=== PATIENT | female | born 1960 | race Hispanic/Latino ===

== ENCOUNTER 2017-02-20 07:17 | Emergency (ER) | payer OTHER, MEDICAID ==
[2017-02-20 07:18] VITALS: BMI 30.4
[2017-02-20 07:34] VITALS: TEMP 98.7
[2017-02-20] MEDS ORDERED: TDAP Vaccine 0.5 mL Syr IM ONE (07:49)
--- NOTE | 2017-02-20 07:53 | ED PDOC ---
Arrival/HPI - General Chief Complaint: Eye Problem Time Seen by Provider: 02/20/17 07:29 Historian: Patient - History of Present Illness Narrative History of Present Illness (Text): 02/20/17 07:50 Patient is a 56 year old female who presents to the emergency department with right eye pain after her dog scratched her eye prior to arrival. Patient reports tearing and redness with some blurry vision. Patient reports she usually wears a contact lens in her left eye, none in her right eye today. She states she took Aleve with no relief. Patient reports unknown last tetanus shot. Denies pain on other areas of the face. No other complaints. Time/Duration: Prior to Arrival Symptom Onset: Sudden Symptom Course: Unchanged Context: Home Past Medical History - Provider Review Nursing Documentation Reviewed: Yes - Infectious Disease Hx of Infectious Diseases: None - Tetanus Immunization Tetanus Immunization: Unknown - Reproductive Menopause: No - Cardiac Hx Hypertension: Yes - Pulmonary Hx Asthma: Yes - HEENT Hx HEENT Disorder: (pt uses one contact lens in left eye to read) - Musculoskeletal/Rheumatological Hx Arthritis: Yes (fingers) Hx Falls: No - Psychiatric Hx Anxiety: Yes Hx Depression: Yes Hx Substance Use: No - Past Surgical History Past Surgical History: No Previous - Anesthesia Hx Anesthesia: No Hx Anesthesia Reactions: No Hx Malignant Hyperthermia: No - Suicidal Assessment Feels Threatened In Home Enviroment: No Family/Social History - Physician Review Nursing Documentation Reviewed: Yes Family/Social History: Unknown Family HX Smoking Status: Current Some Days Smoker Hx Alcohol Use: Yes Hx Substance Use: No Hx Substance Use Treatment: No Allergies/Home Meds Allergies/Adverse Reactions: Allergies No Known Allergies Allergy (Verified 02/20/17 07:35) Home Medications: Home Meds Medication Instructions Recorded Confirmed Enalapril Maleate [Vasotec] 2.5 mg PO DAILY 02/20/17 02/20/17 Lovastatin [Altoprev] 20 mg PO DAILY 02/20/17 02/20/17 Review of Systems - Review of Systems Constitutional: absent: Fevers Eyes: Vision Changes, Photophobia, Eye Pain (Right) ENT: Rhinorrhea. absent: Sore Throat, Sinus Congestion Respiratory: absent: SOB Cardiovascular: absent: Chest Pain Neurological: absent: Headache, Dizziness, Gait Changes Physical Exam Vital Signs Reviewed: Yes Vital Signs Temp Pulse Resp BP Pulse Ox 02/20/17 07:29 98.7 F 75 18 130/84 97 Temperature: Afebrile Blood Pressure: Normal Pulse: Regular Respiratory Rate: Normal Appearance: Positive for: Well-Appearing, Non-Toxic, Uncomfortable Pain Distress: Mild Mental Status: Positive for: Alert and Oriented X 3 - Systems Exam Head: Present: Other (mild swelling ot right upper eyelid without external abrasion or laceration, no orbital stepoffs or tenderness) Pupils: Present: PERRL Extroacular Muscles: Present: EOMI Conjunctiva: Present: Injected, Other (there is 2 mm diameter central corneal abrasion noted, with fluoroscein uptake, no foreign body noted) Mouth: Present: Moist Mucous Membranes Nose (Internal): Present: No Active Bleeding Neck: Present: Normal Range of Motion Respiratory/Chest: No: Respiratory Distress Neurological: Present: CN II-XII Intact, Motor Func Grossly Intact, Normal Sensory Function Psychiatric: Present: Alert Medical Decision Making ED Course and Treatment: Differential Diagnosis include but are not limited to: Corneal abrasion Plan: Will update Tetanus shot, give Antibiotic eye drops, and instruct follow up with Opthamology. Progress Notes: Patient's history reviewed. No orbital edema noted. NO bony trauma noted. EOMI. PERRLA. Relief of pain after tetracaine drops instilled to right eye. There is flouroscein uptake suggestive of central corneal abrasion. Eye irrigated. No foreign bodies visualized with lid eversio. Re-exam, visual acuity and visual roberson intact at baseline. Stressed need for follow-up with optho given location and size of abrasion which I reviewed with patient. Risks of noncompliance reviewed. Cranial nerves intact. 02/20/17 08:10 - Medication Orders Current Medication Orders: Discontinued Medications Tetanus/Reduced Diphtheria/Acell Pertussis (Boostrix Vaccine Inj) 0.5 ml IM .ONCE ONE Stop: 02/20/17 07:50 - Scribe Statement The provider has reviewed the documentation as recorded by the Lillie Vazquez Provider Scribe Attestation: All medical record entries made by the Scribe were at my direction and personally dictated by me. I have reviewed the chart and agree that the record accurately reflects my personal performance of the history, physical exam, medical decision making, and the department course for this patient. I have also personally directed, reviewed, and agree with the discharge instructions and disposition. Disposition/Present on Arrival - Present on Arrival Any Indicators Present on Arrival: No History of DVT/PE: No History of Uncontrolled Diabetes: No Urinary Catheter: No History of Decub. Ulcer: No History Surgical Site Infection Following: None - Disposition Have Diagnosis and Disposition been Completed?: Yes Diagnosis: Corneal abrasion, right Disposition: HOME/ ROUTINE Disposition Time: 07:50 Condition: GOOD Discharge Instructions (ExitCare): Corneal Abrasion (ED) Additional Instructions: Use eye drops as directed. Do not wear contact lenses in affected eye until cleared by an eye doctor. No driving until visual symptoms have resolved. For any facial swelling, any bleeding or pus, any loss of vision or worsening of vision, any persistent or worsening of symptoms, get rechecked immediately. Follow-up with eye doctor today or tomorrow. Prescriptions: Ciprofloxacin 0.3% [Ciloxan 0.3% Ophth SOLN] 2 drop OD Q4 #1 bottle Referrals: Zion Kwok MD [Staff Provider] - Follow up with primary Forms: WORK NOTE, [facility] (Lebanese)
[2017-02-20] MEDS ORDERED: Ciprofloxacin 0.3% OPTH SOLN OD STA (08:18)
[2017-02-20 08:50] VITALS: BP 146/82; PULSE 77; RESP 16; O2SAT 98
== END 2017-02-20 08:50 | disposition home or self-care (01) ==
LOC: ED 07:17
DX: S05.01XA Injury of conjunctiva and corneal abrasion without foreign body, right eye, initial encounter (principal); W54.1XXA Struck by dog, initial encounter; Y93.89 Activity, other specified; Y92.89 Other specified places as the place of occurrence of the external cause; Z23 Encounter for immunization

== ENCOUNTER 2017-09-09 10:13 | Observation (INO) | payer OTHER, MEDICAID ==
[2017-09-09 10:27] VITALS: BMI 32.3
[2017-09-09] MEDS ORDERED: Sodium Chloride 0.9% 1,000 ML IV STA (10:36)
--- NOTE | 2017-09-09 12:10 | CT ---
PROCEDURE: CT HEAD WITHOUT CONTRAST. HISTORY: left sided headache, hx of meningioma COMPARISON: None available. TECHNIQUE: Axial computed tomography images were obtained through the head/brain without intravenous contrast. Radiation dose: Total exam DLP = 678.13 mGy-cm. This CT exam was performed using one or more of the following dose reduction techniques: Automated exposure control, adjustment of the mA and/or kV according to patient size, and/or use of iterative reconstruction technique. FINDINGS: HEMORRHAGE: No intracranial hemorrhage. BRAIN: No mass effect or edema. Dilated sulci suggestive of volume loss. VENTRICLES: Unremarkable. No hydrocephalusThe lateral ventricles are moderately dilated left more than right in the 3rd and 4th ventricles are mildly dilated. Findings suspicious for hydrocephalus. The differential considerations include central atrophy. . CALVARIUM: Unremarkable. PARANASAL SINUSES: Unremarkable as visualized. No significant inflammatory changes. MASTOID AIR CELLS: Unremarkable as visualized. No inflammatory changes. OTHER FINDINGS: None. IMPRESSION: No evidence of acute intracranial hemorrhage mass effect or midline shift. Moderately dilated lateral ventricles left more than right and mildly dilated 3rd and 4th ventricles. Findings suggestive of hydrocephalus versus less likely central atrophy. If clinically indicated further assessment by MRI is suggested.
[2017-09-09 12:16] LABS: BASO # 0.02 K/mm3 (0.0-2.0); BASO % 0.3 % (0.0-3.0); EOS # 0.1 (0.0-0.7); EOS % 2.2 % (1.5-5.0); GRAN # 3.26 (1.4-6.5); GRAN % 55.3 % (50.0-68.0); HEMOGLOBIN 13.2 g/dL (12.0-16.0); LYMPH # 2.1 (1.2-3.4); LYMPH % 35.4 % (22.0-35.0); MEAN CELL VOLUME 98.8 fl (80.0-105.0); MEAN CORPUSCULAR HEMOGLOBIN 32.4 pg (25.0-35.0); MEAN CORPUSCULAR HGB CONC 32.8 g/dl (31.0-37.0); MEAN PLATELET VOLUME 11.5 fl (7.0-11.0); MONO # 0.4 (0.1-0.6); MONO % 6.8 % (1.0-6.0); RBC 4.08 10^6/uL (3.5-6.1); RED CELL DISTRIBUTION WIDTH 12.4 % (11.5-14.5); WHITE BLOOD COUNT 5.9 10^3/ul (4.5-11.0)
--- NOTE | 2017-09-09 12:19 | CARD ---
APPROVED REPORT EKG Measurement Heart [id number] VT 184P44 [id number] <Conclusion> Normal sinus rhythm Voltage criteria for left ventricular hypertrophy Leftward axis PRWP V 3 - 6. Could be lead positioning. New.
[2017-09-09 12:20] LABS: VENOUS BLOOD GAS BASE EXCESS 3.8 mmol/L (0.0-2.0); VENOUS BLOOD GAS PO2 52 mm/Hg (30-55); VENOUS BLOOD PH 7.35 (7.32-7.43)
[2017-09-09 12:25] LABS: INR 0.96 (0.93-1.08); PARTIAL THROMBOPLASTIN TIME 27.2 Seconds (25.1-36.5); PROTHROMBIN TIME 10.5 SECONDS (9.4-12.5)
[2017-09-09 12:26] LABS: ALB/GLOB RATIO 1.5 (1.1-1.8); ALBUMIN 4.3 g/dL (3.0-4.8); ALT/SGPT 32 U/L (7-56); AST/SGOT 29 U/L (14-36); BLOOD UREA NITROGEN 14 mg/dL (7-21); CALCIUM 9.4 mg/dL (8.4-10.5); GFR AFRICAN-AMERICAN > 60; GFR NON-AFRICAN AMERICAN > 60; MAGNESIUM 1.9 mg/dL (1.7-2.2)
[2017-09-09 12:37] LABS: B-TYPE NATRIURETIC PEPTIDE 77.4 pg/mL (0-450); TROPONIN I < 0.01 ng/mL
--- NOTE | 2017-09-09 12:44 | RAD ---
HISTORY: near syncope COMPARISON: 10/26/2012 FINDINGS: LUNGS: No active pulmonary disease. PLEURA: No significant pleural effusion identified, no pneumothorax apparent. CARDIOVASCULAR: Normal. OSSEOUS STRUCTURES: No significant abnormalities. VISUALIZED UPPER ABDOMEN: Normal. OTHER FINDINGS: None. IMPRESSION: No active disease.
[2017-09-09 14:20] LABS: URINE BILIRUBIN NEGATIVE (NEGATIVE); URINE BLOOD NEGATIVE (NEGATIVE); URINE GLUCOSE (UA) NEGATIVE (NEGATIVE); URINE LEUKOCYTE ESTERASE TRACE Leu/uL (NEGATIVE); URINE NITRATE NEGATIVE (NEGATIVE); URINE PROTEIN TRACE mg/dL (<30 mg/dL); URINE UROBILINOGEN 0.2 E.U./dL (<1 E.U./dL)
[2017-09-09 14:24] LABS: URINE APPEARANCE SL CLOUDY (CLEAR); URINE COLOR YELLOW (YELLOW)
[2017-09-09 14:25] LABS: URINE BACTERIA MOD (NEG); URINE RBC 0 - 2 /hpf (0-2)
--- NOTE | 2017-09-09 15:11 | CP.PCM.HP ---
<Hiren Marquez - Last Filed: 09/09/17 15:02> History of Present Illness - History of Present Illness History of Present Illness: CC: Dizziness and headache Pt is a 56 yo female with past medical history of hypertension, COPD, hyperlipidemia, depression, GERD, peripheral edema and meningioma [place] [facility] [place] occipital headache and dizziness for past 6 days. Pt states that headache is throbbing and located mostly on the right side of her occipital region. Pt states that she feels as if she is about to pass out, but has not passed out, fallen, or endured any trauma. Pt states that her symptoms are associated with blurred vision, nausea, vomiting, palpitations, diaphoresis, and upper extremity weakness. Pt states that tsymptoms are generally constant but have varying levels of severity throughout the day. Pt states that lying supine makes her headache worse and will sometimes wake her up at night. Pt denies chest pain, shortness of breath, abdominal pain, constipation, diarrhea fever, chills, fatigue, or recent weight loss. Of note, patient had stress test done about [address] Walden that was normal. 2D echo was also performed that showed normal left atrial pressure and normal LVEF. PMH: as above Surg: Uterine polyp removal All: NKDA FHx: myocardial infarction, stroke SH: Former 1 ppd smoker (quit 3 years ago), social EtOH, denied illicit drug use PMD: Faith Present on Admission - Present on Admission Any Indicators Present on Admission: No Review of Systems - Review of Systems Review of Systems: 12 point ROS reviewed and is negative other than what is stated in HPI. Past Patient History - Infectious Disease Hx of Infectious Diseases: None - Tetanus Immunizations Tetanus Immunization: Unknown - Past Social History Smoking Status: Former Smoker - CARDIAC Hx Hypertension: Yes - PULMONARY Hx Asthma: Yes - HEENT Hx HEENT Problems: (pt uses one contact lens in left eye to read) Other/Comment: tumor back of R eye - MUSCULOSKELETAL/RHEUMATOLOGICAL Hx Arthritis: Yes (fingers) - PSYCHIATRIC Hx Anxiety: Yes Hx Depression: Yes Hx Substance Use: No - ANESTHESIA Hx Anesthesia: No Hx Anesthesia Reactions: No Hx Malignant Hyperthermia: No Meds Allergies/Adverse Reactions: Allergies Allergy/AdvReac Type Severity Reaction Status Date / Time No Known Allergies Allergy Verified 09/09/17 13:06 Physical Exam - Constitutional Appears: No Acute Distress - Head Exam Head Exam: NORMAL INSPECTION - Eye Exam Eye Exam: Normal appearance - ENT Exam ENT Exam: Normal Exam - Neck Exam Neck exam: Positive for: Normal Inspection - Respiratory Exam Respiratory Exam: Clear to Auscultation Bilateral. absent: Accessory Muscle Use , Rales, Rhonchi, Wheezes, Respiratory Distress - Cardiovascular Exam Cardiovascular Exam: RRR, +S1, +S2. absent: Diastolic murmur, Gallop, Rubs, Systolic Murmur - GI/Abdominal Exam GI & Abdominal Exam: Soft. absent: Distended, Guarding, Rebound, Tenderness - Extremities Exam Extremities exam: Positive for: pedal edema (1/) - Neurological Exam Neurological exam: Alert, Oriented x3 Additional comments: Negative pronator drift, rhomberg. No dysdiadodyskinesia, negative antonia- hallpike. Focal motor or sensory deficits - Psychiatric Exam Psychiatric exam: Normal Affect, Normal Mood - Skin Skin Exam: Dry, Intact, Normal Color, Warm Results - Vital Signs Recent Vital Signs: Last Vital Signs Temp 99.3 F 09/09/17 10:14 Pulse 67 09/09/17 12:43 Resp 18 09/09/17 12:43 BP 144/87 09/09/17 12:43 Pulse Ox 96 09/09/17 12:43 - Labs Result Diagrams: 09/09/17 11:30 09/09/17 11:30 Labs: Laboratory Results - last 24 hr 09/09/17 14:17 Urine Color Yellow Urine Appearance Sl cloudy Urine pH 6.0 Ur Specific [place] 1.025 Urine Protein Trace H Urine Glucose (UA) Negative Urine Ketones Negative Urine Blood Negative Urine Nitrate Negative Urine Bilirubin Negative Urine Urobilinogen 0.2 Ur Leukocyte Esterase Trace H Urine RBC 0 - 2 Urine WBC 1 - 3 Ur Epithelial Cells 6 - 8 Urine Bacteria Mod Assessment & Plan - Assessment and Plan (Free Text) Assessment: 56 yo female with past medical history of hypertension, COPD, hyperlipidemia, depression, GERD, peripheral edema, and meningioma admitted for evaluation and treatment for near syncope with headache. Plan: 1. Near syncope - CT showed moderately dilated lateral ventricles left > right, mildly dilated 3rd and 4th ventricle - MRI Brain w/wo contrast ordered - Neuro consulted - Carotid doppler ordered - Troponin negative x1, trend x2 - Orthostatic vitals normal - PT eval and treat - Recent echo showed normal LVEF - Aspiration and fall precautions 2. Hypertension - Cont Norvasc and Lisinopril 3. Hyperlipidemia - Cont Lipitor 4. Peripheral Edema - Cont Lasix 5. GERD - Cont Protonix 6. Depression - Cont Celexa GI/DVT PPx - Protonix - SCDs Pt seen and discussed in detail with attending. Se Marquez, PGY1 <JameselisMelanie sanchez - Last Filed: 09/09/17 16:46> Results - Vital Signs Recent Vital Signs: Last Vital Signs Temp 98.6 F 09/09/17 15:06 Pulse 68 09/09/17 15:06 Resp 19 09/09/17 15:06 BP 138/79 09/09/17 15:06 Pulse Ox 99 09/09/17 15:06 - Labs Result Diagrams: 09/09/17 11:30 09/09/17 11:30 Labs: Laboratory Results - last 24 hr 09/09/17 14:17 Urine Color Yellow Urine Appearance Sl cloudy Urine pH 6.0 Ur Specific [place] 1.025 Urine Protein Trace H Urine Glucose (UA) Negative Urine Ketones Negative Urine Blood Negative Urine Nitrate Negative Urine Bilirubin Negative Urine Urobilinogen 0.2 Ur Leukocyte Esterase Trace H Urine RBC 0 - 2 Urine WBC 1 - 3 Ur Epithelial Cells 6 - 8 Urine Bacteria Mod Attending/Attestation - Attestation I have personally seen and examined this patient.: Yes I have fully participated in the care of the patient.: Yes I have reviewed all pertinent clinical information: Yes Notes (Text): 09/09/17 16:38 attending note; Patient seen and examined with resident in ER. Patient is a 56 year old female with past medical history of hypertension, COPD , hyperlipidemia, depression, GERD, and meningioma is admitted with headache and dizziness for past [address] head shows dilated lateral ventricle with atrophy. MRI ordered. neurology evaluation requested. dizziness; check orthostatic blood pressure changes. PT evaluation requested. Adjust blood pressure medications. EKG showed nonspecific ST-T changes. Troponin is negative. 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 Patient has stress test done as outpatient in September 2016 which showed normal ejection fraction and normal left atrial pressure. will follow-up MRI. Upon discharge the patient will follow-up with PMD Dr. Cuevas. 09/09/17 16:46
[2017-09-09] MEDS ORDERED: Gadodiamide 287 MG/ML VIAL (15ML) IV ONE (15:37)
--- NOTE | 2017-09-09 16:31 | ED PDOC ---
Arrival/HPI - General Chief Complaint: Headache Time Seen by Provider: 09/09/17 10:25 Historian: Patient - History of Present Illness Narrative History of Present Illness (Text): 09/09/17 16:28 Patient is a 56 yo female, past medical history of hypertension, presents to the Emergency Department today with complaints of dizziness that started 6 days ago, gradually, now associated with gradual development of left sided posterior headache and nausea. States she feels unsteady on her feet and like "I might pass out" when she stands. Denies fever. Denies trauma. Denies loss of vision or blurred vision. Reports dizziness that is persistent despite position. Denies neck pain. Denies chest pain or shortness of breath. Denies abdominal pain. Denies falls. Time/Duration: Prior to Arrival, 1 week Symptom Onset: Gradual Symptom Course: Worsening Past Medical History - Infectious Disease Hx of Infectious Diseases: None - Tetanus Immunization Tetanus Immunization: Unknown - Reproductive Menopause: Yes - Cardiac Hx Hypertension: Yes - Pulmonary Hx Asthma: Yes - HEENT Hx HEENT Disorder: (pt uses one contact lens in left eye to read) Other/Comment: tumor back of R eye - Musculoskeletal/Rheumatological Hx Arthritis: Yes (fingers) - Psychiatric Hx Anxiety: Yes Hx Depression: Yes Hx Substance Use: No - Past Surgical History Past Surgical History: No Previous - Anesthesia Hx Anesthesia: No Hx Anesthesia Reactions: No Hx Malignant Hyperthermia: No - Suicidal Assessment Feels Threatened In Home Enviroment: No Family/Social History Family/Social History: Unknown Family HX Smoking Status: Former Smoker Hx Alcohol Use: Yes Frequency of alcohol use: Socially Hx Substance Use: No Hx Substance Use Treatment: No Allergies/Home Meds Allergies/Adverse Reactions: Allergies No Known Allergies Allergy (Verified 09/09/17 13:06) Home Medications: Home Meds Medication Instructions Recorded Confirmed Enalapril Maleate [Vasotec] 20 mg PO DAILY 02/20/17 09/09/17 Lovastatin [Altoprev] 10 mg PO DAILY 02/20/17 09/09/17 Citalopram [celEXA] 20 mg PO DAILY 09/09/17 09/09/17 Dexlansoprazole [Dexilant] 60 mg PO DAILY 09/09/17 09/09/17 Furosemide [Lasix] 20 mg PO DAILY 09/09/17 09/09/17 amLODIPine [Norvasc] 5 mg PO DAILY 09/09/17 09/09/17 Review of Systems - Review of Systems Constitutional: Fatigue. absent: Fevers Eyes: absent: Vision Changes, Photophobia, Eye Pain ENT: absent: Hearing Changes, Sore Throat, Rhinorrhea Respiratory: absent: SOB, Cough Cardiovascular: absent: Chest Pain, Palpitations Gastrointestinal: Nausea, Appetite Changes. absent: Abdominal Pain, Diarrhea, Vomiting Genitourinary Female: absent: Dysuria, Frequency Musculoskeletal: absent: Back Pain, Neck Pain Skin: absent: Rash Neurological: Headache, Dizziness, Gait Changes, Disequilibrium. absent: Focal Weakness, Speech Changes, Facial Droop, Seizure Endocrine: absent: Polyuria, Polydipsia Hemo/Lymphatic: absent: Easy Bleeding Psychiatric: absent: Depression, Suicidal Ideation Physical Exam Vital Signs Reviewed: Yes Vital Signs Temp Pulse Resp BP Pulse Ox 09/09/17 15:06 98.6 F 68 19 138/79 99 09/09/17 15:03 71 16 142/80 96 09/09/17 12:43 67 18 144/87 96 09/09/17 10:14 99.3 F 89 16 105/73 95 Temperature: Afebrile Appearance: Positive for: Uncomfortable Pain Distress: Mild Mental Status: Positive for: Alert and Oriented X 3 - Systems Exam Head: Present: Atraumatic, Normocephalic Pupils: Present: PERRL, Other (no nystagmus noted) Extroacular Muscles: Present: EOMI Conjunctiva: No: Injected Mouth: Present: Moist Mucous Membranes Pharnyx: No: ERYTHEMA Nose (Internal): Present: Normal Inspection Neck: Present: Normal Range of Motion. No: Meningeal Signs Respiratory/Chest: Present: Clear to Auscultation. No: Respiratory Distress Cardiovascular: Present: Regular Rate and Rhythm, Murmurs Abdomen: No: Tenderness, Distention Back: No: CVA Tenderness, Midline Tenderness Upper Extremity: Present: NORMAL PULSES, Neurovascularly Intact. No: Cyanosis, Edema Lower Extremity: Present: NORMAL PULSES, Neurovascularly Intact. No: CALF TENDERNESS Neurological: Present: CN II-XII Intact, Speech Normal, Memory Normal, Other ( normal finger to nose, normal rapid alternating movements). No: Gait Normal Skin: Present: Warm Psychiatric: Present: Alert, Normal Concentration Medical Decision Making ED Course and Treatment: 09/09/17 16:33 Patient presents to ED stating dizziness since last week, on exam she is alert, oriented, although has mild posterior left sided headache. No associated trauma or fever. Not "worst in life". Not thunderclap. On exam she has somewhat unsteady gait, no meningeal signs with supple neck. Denies chest pain or shortness of breath. Denies abdominal pain. Based on progressive gait disturbance, ct head ordered, reveals hydrocephalus, no prior for comparison. Patient states in the past she has been diagnosed with "meningioma". Patient on re-examination is noted to be alert, oriented, with mild persistent headache. I consulted with on-call neurologist Dr. Alba who has evaluated patient in ED. CT findings reviewed with patient and patient agreeable to admission for further evaluation and treatment. Patient will be admitted to hospitalist service. - Lab Interpretations Lab Results: 09/09/17 11:30 09/09/17 11:30 Lab Results 09/09/17 11:30: pO2 52, VBG pH 7.35, VBG pCO2 56.0, VBG HCO3 30.9 H, VBG Total CO2 32.6 H, VBG O2 Sat (Calc) 87.3 H, VBG Base Excess 3.8 H, VBG Potassium 3.7, Sodium 137.0, Chloride 101.0, Glucose 136 H, Lactate 2.2 H, FiO2 21.0, Venous Blood Potassium 3.7 09/09/17 11:30: Sodium 139, Chloride 100, Potassium 4.0, Carbon Dioxide 27, Anion Gap 16, BUN 14, Creatinine 0.7, Est GFR ( Amer) > 60, Est GFR (Non- Af Amer) > 60, Random Glucose 134 H, Calcium 9.4, Magnesium 1.9, Total Bilirubin 0.4, AST 29, ALT 32, Alkaline Phosphatase 61, Lactate Dehydrogenase 483, Total Creatine Kinase 47, Troponin I < 0.01, NT-Pro-B Natriuret Pep 77.4, Total Protein 7.2, Albumin 4.3, Globulin 2.9, Albumin/Globulin Ratio 1.5 09/09/17 11:30: PT 10.5, INR 0.96, APTT 27.2 09/09/17 11:30: WBC 5.9, RBC 4.08, Hgb 13.2, Hct 40.3, MCV 98.8, MCH 32.4, MCHC 32.8, RDW 12.4, Plt Count 249, MPV 11.5 H, Gran % 55.3, Lymph % (Auto) 35.4 H, [place] % (Auto) 6.8 H, Eos % (Auto) 2.2, Baso % (Auto) 0.3, Gran # 3.26, Lymph # 2.1, [place] # 0.4, Eos # 0.1, Baso # 0.02 09/09/17 11:03: POC Glucose (mg/dL) 134 H - RAD Interpretation Radiology Orders: 09/09/17 10:35 HEAD W/O CONTRAST [CT] Stat CHEST PORTABLE [RAD] Stat - EKG Interpretation EKG Interpretation (Text): 09/09/17 16:35 EKG at 11:06 normal sinus rhythm rate of [address] elevations Interpreted by ED Physician: Yes Type: 12 lead EKG - Medication Orders Current Medication Orders: Amlodipine Besylate (Norvasc) 5 mg PO DAILY JOHANNY Atorvastatin Calcium (Lipitor) 40 mg PO DIN JOHANNY Citalopram Hydrobromide (Celexa) 20 mg PO DAILY JOHANNY Furosemide (Lasix) 20 mg PO DAILY JOHANNY Lisinopril (Zestril) 20 mg PO DAILY JOHANNY Pantoprazole Sodium (Protonix Ec Tab) 40 mg PO 0600 JOHANNY Discontinued Medications Acetaminophen (Tylenol 325mg Tab) 650 mg PO ONCE STA Stop: 09/09/17 15:01 Last Admin: 09/09/17 15:15 Dose: 650 mg MAR Pain/Vitals Document 09/09/17 15:15 [place] (Rec: 09/09/17 15:17 [place] [facility] [id number] Pain Reassessment Is This A Pain ReAssessment? Yes Sleep Is patient sleeping during reassessment? 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 Intensity 2 Scale Used Numeric Sodium Chloride (Sodium Chloride 0.9%) 1,000 mls @ 1,000 mls/hr IV .Q1H STA Stop: 09/09/17 11:35 Last Admin: 09/09/17 11:06 Dose: 1,000 mls/hr eMAR Start Stop Document 09/09/17 11:06 LA (Rec: 09/09/17 11:06 [place] [facility] [id number] Intravenous Solution Start Date 09/09/17 Start Time 11:06 Non-Formulary Medication (Enalapril Maleate [Vasotec]) 20 mg PO DAILY [facility] Non-Formulary Medication (Lovastatin [Altoprev]) 10 mg PO DAILY JOHANNY Disposition/Present on Arrival - Present on Arrival Any Indicators Present on Arrival: No History of DVT/PE: No History of Uncontrolled Diabetes: No Urinary Catheter: No History of Decub. Ulcer: No History Surgical Site Infection Following: None - Disposition Have Diagnosis and Disposition been Completed?: Yes Diagnosis: Hydrocephalus, Dizziness, Headache, Gait disturbance Disposition: HOSPITALIZED Disposition Time: 12:15 Patient Plan: Admission, Telemetry Patient Problems: Current Active Problems Problem Status Onset Dizziness Acute Gait disturbance Acute Headache Acute Hydrocephalus Acute Condition: FAIR
--- NOTE | 2017-09-09 16:52 | MRI ---
PROCEDURE: MRI BRAIN WITH AND WITHOUT CONTRAST HISTORY: dilated ventricles on CT COMPARISON: None. TECHNIQUE: Multiplanar, multisequence MR images of the brain were obtained with and without intravenous contrast enhancement. FINDINGS: HEMORRHAGE: None DWI: No evidence of an acute or early subacute infarction. BRAIN PARENCHYMA: No mass,mass effect or edema. Mild volume loss is noted. ENHANCEMENT: There is no evidence of enhancing mass lesion in the brain. VENTRICLES: Moderately dilated lateral ventricles left more than right. The 3rd ventricles is mildly dilated. The 4th ventricle is normal in size. There is no evidence of significant transependymal edema. CRANIUM: Unremarkable. ORBITS: Grossly unremarkable. PARANASAL SINUSES/MASTOIDS: Clear VASCULAR SYSTEM: Skull base flow voids intact. OTHER FINDINGS: None . IMPRESSION: Moderately dilated lateral ventricles may represent non communicated hydrocephalus versus less likely moderate central atrophy. No evidence of enhancing mass lesion in the brain. No evidence of acute infarction or acute pathology in the brain.
--- NOTE | 2017-09-09 17:18 | US ---
PROCEDURE: Bilateral carotid artery duplex ultrasound HISTORY: Carotid stenosis dizziness PHYSICIAN(S): Octavio Gamez MD. TECHNIQUE: Duplex sonography and color-flow Doppler were used to evaluate the carotid bifurcations and limited segments of the vertebral arteries bilaterally. FINDINGS: There is mild smooth hypoechoic plaque noted at the carotid bifurcations bilaterally. The peak systolic velocity in the proximal right internal carotid artery is 88 cm/sec. This corresponds to a 20 to 39% proximal right ICA stenosis. Normal systolic velocities are noted in the proximal right external carotid artery. There is antegrade flow in the right vertebral artery. The peak systolic velocity in the proximal left internal carotid artery is 89 cm/sec. This corresponds to a 20 to 39% proximal left ICA stenosis. Normal systolic velocities are noted in the proximal left external carotid artery. There is antegrade flow in the dominant left vertebral artery. IMPRESSION: 1. Bilateral 20-39% proximal ICA stenoses. 2. Antegrade flow in both vertebral arteries.
[2017-09-09 17:37] LABS: VENOUS BLOOD GAS BASE EXCESS 2.7 mmol/L (0.0-2.0); VENOUS BLOOD GAS PO2 159 mm/Hg (30-55); VENOUS BLOOD PH 7.41 (7.32-7.43)
[2017-09-09 22:13] LABS: TROPONIN I < 0.01 ng/mL
--- NOTE | 2017-09-09 23:44 | CON ---
HISTORY OF PRESENT ILLNESS: This is a 56-year-old white female with a past medical history of hypertension, came to the emergency room with the complaint of dizziness, which started about 6 days ago and also associated with headache in the back of the head and nausea. She also feels unsteady and thinks she might pass out, but did not fall. No loss of consciousness. No visual problem. No blurred vision. Called to evaluate the patient. PAST MEDICAL HISTORY: Hypertension, anxiety, and depression. ALLERGIES: No known drug allergy. HOME MEDICATIONS: Enalapril, Celexa, and Lasix. PHYSICAL EXAMINATION: HEENT: Normocephalic, atraumatic. NECK: Supple. NEUROLOIC: Awake, alert, oriented x3. No aphasia. Cranial nerves II through XII are tested. Pupils are reactive to light. EOM intact. Visual field full. No facial asymmetry. Tongue midline. On motor examination, moves all the extremities equally. Tone normal. Deep tendon reflexes 1+. Both plantars are downgoing. Sensory appears intact. Cerebellar and gait, deferred. IMPRESSION: Dizziness, vertigo, possibly vertebrobasilar ischemia, and headache, possibly migrainous type and we did the MRI and the MRI showed noncommunicating mild hydrocephalus and workup is in progress. We will follow up. Bo Alba MD
[2017-09-10] MEDS ORDERED: Influenza Vaccine 60 mcg/0.5 mL SYR (4YR UP) IM ONE (00:53)
[2017-09-10] MEDS ORDERED: Pneumococcal 23-Valent Vaccine IM ONE (00:53)
[2017-09-10 04:14] LABS: ALB/GLOB RATIO 1.3 (1.1-1.8); ALBUMIN 3.8 g/dL (3.0-4.8); ALT/SGPT 35 U/L (7-56); AST/SGOT 28 U/L (14-36); BLOOD UREA NITROGEN 12 mg/dL (7-21); CALCIUM 8.9 mg/dL (8.4-10.5); GFR AFRICAN-AMERICAN > 60; GFR NON-AFRICAN AMERICAN > 60; MAGNESIUM 2.1 mg/dL (1.7-2.2)
[2017-09-10 04:24] LABS: TROPONIN I < 0.01 ng/mL
[2017-09-10 04:53] LABS: BASO # 0.01 K/mm3 (0.0-2.0); BASO % 0.2 % (0.0-3.0); EOS # 0.2 (0.0-0.7); EOS % 3.6 % (1.5-5.0); GRAN # 1.91 (1.4-6.5); GRAN % 38.5 % (50.0-68.0); HEMOGLOBIN 12.6 g/dL (12.0-16.0); LYMPH # 2.5 (1.2-3.4); LYMPH % 49.6 % (22.0-35.0); MEAN CELL VOLUME 99.7 fl (80.0-105.0); MEAN CORPUSCULAR HEMOGLOBIN 32.6 pg (25.0-35.0); MEAN CORPUSCULAR HGB CONC 32.7 g/dl (31.0-37.0); MEAN PLATELET VOLUME 10.4 fl (7.0-11.0); MONO # 0.4 (0.1-0.6); MONO % 8.1 % (1.0-6.0); RBC 3.86 10^6/uL (3.5-6.1); RED CELL DISTRIBUTION WIDTH 12.4 % (11.5-14.5)
[2017-09-10] MEDS: Pantoprazole 40 mg EC Tab PO SCH (05:51)
[2017-09-10] MEDS ORDERED: Non Formulary Medication (Enalapril Maleate [Vasotec] 20 MG) PO SCH (10:00)
[2017-09-10] MEDS ORDERED: LOVASTATIN 10 MG PO SCH (10:00)
[2017-09-10] MEDS ORDERED: Apap-Butalbital-Caffeine 325-50-40mg Tab PO PRN (11:51)
[2017-09-10] MEDS ORDERED: Sodium Chloride 0.9% 500 ML IV STA (12:06)
--- NOTE | 2017-09-10 16:49 | CP.PCM.PN ---
<Hiren Marquez - Last Filed: 09/10/17 16:43> Subjective - Date & Time of Evaluation Date of Evaluation: 09/10/17 Time of Evaluation: 16:43 - Subjective Subjective: Medicine Progress Note Pt seen and examined at bedside. Pt states that she feels dizzy when getting out of bed too quick. But not dizzy otherwise. Headaches have resolved as well. Pt denied CP, SOB, nausea, vomiting, diarrhea, abdominal pain, fever, chills, WOODARD , or fatigue. Objective - Vital Signs/Intake and Output Vital Signs (last 24 hours): Temp Pulse Resp BP Pulse Ox 98.8 F 60 18 126/70 95 09/10/17 06:00 09/10/17 10:21 09/10/17 06:00 09/10/17 10:22 09/10/17 06:00 Intake and Output: 09/10/17 09/10/17 06:59 18:59 Intake Total 480 Balance 480 - Medications Medications: Current Medications Acetaminophen/Butalbital/Caffeine (Fioricet) 1 tab PO Q8H PRN PRN Reason: Headache Amlodipine Besylate (Norvasc) 5 mg PO DAILY [facility] Last Admin: 09/10/17 10:21 Dose: 5 mg Atorvastatin Calcium (Lipitor) 40 mg PO DIN [facility] Last Admin: 09/09/17 17:42 Dose: 40 mg Citalopram Hydrobromide (Celexa) 20 mg PO DAILY [facility] Last Admin: 09/10/17 10:22 Dose: 20 mg Furosemide (Lasix) 20 mg PO DAILY [facility] Last Admin: 09/10/17 10:22 Dose: 20 mg Lisinopril (Zestril) 20 mg PO DAILY [facility] Last Admin: 09/10/17 10:21 Dose: 20 mg Pantoprazole Sodium (Protonix Ec Tab) 40 mg PO 0600 [facility] Last Admin: 09/10/17 05:51 Dose: 40 mg - Labs Labs: 09/10/17 04:35 09/10/17 03:55 PT 10.5 SECONDS (9.4-12.5) 09/09/17 11:30 INR 0.96 (0.93-1.08) 09/09/17 11:30 APTT 27.2 Seconds (25.1-36.5) 09/09/17 11:30 - Constitutional Appears: No Acute Distress - Head Exam Head Exam: NORMAL INSPECTION - Eye Exam Eye Exam: Normal appearance - ENT Exam ENT Exam: Normal Exam - Neck Exam Neck Exam: Full ROM, Normal Inspection - Respiratory Exam Respiratory Exam: Clear to Ausculation Bilateral. absent: Rales, Rhonchi, Wheezes, Respiratory Distress - Cardiovascular Exam Cardiovascular Exam: RRR, +S1, +S2. absent: Gallop, Rubs, Murmur - GI/Abdominal Exam GI & Abdominal Exam: Soft. absent: Distended, Guarding, Tenderness, Rebound - Extremities Exam Extremities Exam: Normal Inspection - Back Exam Back Exam: NORMAL INSPECTION - Neurological Exam Neurological Exam: Alert, Awake, Oriented x3 - Psychiatric Exam Psychiatric exam: Normal Affect, Normal Mood - Skin Skin Exam: Dry, Intact, Normal Color, Warm Assessment and Plan - Assessment and Plan (Free Text) Assessment: 56 yo female with past medical history of hypertension, COPD, hyperlipidemia, depression, GERD, peripheral edema, and meningioma admitted for evaluation and treatment for vertigo with headache. Plan: 1. Vertigo, Headache - Will hold AM Lasix, evaluate dizziness afterwards - CT showed moderately dilated lateral ventricles left > right, mildly dilated 3rd and 4th ventricle - MRI Brain w/wo contrast showed moderately dilated lateral ventricles, may represent non-communicating hydrocephalus - Neuro consulted - Neurosurgery consulted, advised outpatient follow up - Carotid doppler negative - Troponin negative x3 - Orthostatic vitals normal before and after 500 cc NS bolus - PT eval and treat - Recent echo showed normal LVEF - Aspiration and fall precautions 2. Hypertension - Cont Norvasc and Lisinopril 3. Hyperlipidemia - Cont Lipitor 4. Peripheral Edema - Cont Lasix 5. GERD - Cont Protonix 6. Depression - Cont Celexa GI/DVT PPx - Protonix - SCDs Pt seen and discussed in detail with Dr. Diaz. Se Marquez, PGY1 <Alok Diaz - Last Filed: 09/10/17 17:04> Objective - Vital Signs/Intake and Output Vital Signs (last 24 hours): Temp Pulse Resp BP Pulse Ox 98.8 F 84 18 126/70 95 09/10/17 06:00 09/10/17 14:00 09/10/17 06:00 09/10/17 10:22 09/10/17 06:00 Intake and Output: 09/10/17 09/10/17 06:59 18:59 Intake Total 480 Balance 480 - Medications Medications: Current Medications Acetaminophen/Butalbital/Caffeine (Fioricet) 1 tab PO Q8H PRN PRN Reason: Headache Amlodipine Besylate (Norvasc) 5 mg PO DAILY [facility] Last Admin: 09/10/17 10:21 Dose: 5 mg Atorvastatin Calcium (Lipitor) 40 mg PO DIN [facility] Last Admin: 09/09/17 17:42 Dose: 40 mg Citalopram Hydrobromide (Celexa) 20 mg PO DAILY [facility] Last Admin: 09/10/17 10:22 Dose: 20 mg Furosemide (Lasix) 20 mg PO DAILY [facility] Last Admin: 09/10/17 10:22 Dose: 20 mg Lisinopril (Zestril) 20 mg PO DAILY [facility] Last Admin: 09/10/17 10:21 Dose: 20 mg Pantoprazole Sodium (Protonix Ec Tab) 40 mg PO 0600 [facility] Last Admin: 09/10/17 05:51 Dose: 40 mg - Labs Labs: 09/10/17 04:35 09/10/17 03:55 PT 10.5 SECONDS (9.4-12.5) 09/09/17 11:30 INR 0.96 (0.93-1.08) 09/09/17 11:30 APTT 27.2 Seconds (25.1-36.5) 09/09/17 11:30 Attending/Attestation - Attestation I have personally seen and examined this patient.: Yes I have fully participated in the care of the patient.: Yes I have reviewed all pertinent clinical information, including history, physical exam and plan: Yes Notes (Text): 56 yo female with past medical history of hypertension, COPD, hyperlipidemia, depression, GERD, peripheral edema, and meningioma admitted for evaluation and treatment for vertigo with headache. Plan: 1. Vertigo, Headache only happens in morning rule out orthostatic hypotension 2. Hypertension - Cont Norvasc and Lisinopril hold lasix 3. Hyperlipidemia 4. Peripheral Edema 5. GERD 6. Depression
[2017-09-11] MEDS: Pantoprazole 40 mg EC Tab PO SCH (07:01)
[2017-09-11 07:29] LABS: BASO # 0.01 K/mm3 (0.0-2.0); BASO % 0.2 % (0.0-3.0); EOS # 0.1 (0.0-0.7); EOS % 2.4 % (1.5-5.0); GRAN # 2.61 (1.4-6.5); GRAN % 53.1 % (50.0-68.0); HEMOGLOBIN 12.9 g/dL (12.0-16.0); LYMPH # 1.7 (1.2-3.4); LYMPH % 35.2 % (22.0-35.0); MEAN CELL VOLUME 99.8 fl (80.0-105.0); MEAN CORPUSCULAR HEMOGLOBIN 32.2 pg (25.0-35.0); MEAN CORPUSCULAR HGB CONC 32.3 g/dl (31.0-37.0); MEAN PLATELET VOLUME 10.5 fl (7.0-11.0); MONO # 0.5 (0.1-0.6); MONO % 9.1 % (1.0-6.0); RBC 4.01 10^6/uL (3.5-6.1); RED CELL DISTRIBUTION WIDTH 12.3 % (11.5-14.5); WHITE BLOOD COUNT 4.9 10^3/ul (4.5-11.0)
[2017-09-11 07:43] LABS: ALB/GLOB RATIO 1.1 (1.1-1.8); ALBUMIN 3.8 g/dL (3.0-4.8); ALT/SGPT 33 U/L (7-56); AST/SGOT 30 U/L (14-36); BLOOD UREA NITROGEN 12 mg/dL (7-21); CALCIUM 9.6 mg/dL (8.4-10.5); GFR AFRICAN-AMERICAN > 60; GFR NON-AFRICAN AMERICAN > 60
[2017-09-11 08:45] VITALS: RESP 18; TEMP 98.7; O2SAT 97
[2017-09-11 09:46] VITALS: BP 102/72; PULSE 79
--- NOTE | 2017-09-11 11:28 | CP.PCM.DIS ---
Provider - Provider Date of Admission: 09/09/17 12:38 Attending physician: Melanie Frey MD Primary care physician: Jonnathan Cuevas MD Consults: Neuro: Anjali Neurosurg: Hilario Time Spent in preparation of Discharge (in minutes): 45 Hospital Course - Lab Results Lab Results: Micro Results 09/09/17 14:25 Urine,Clean Catch Urine Culture - Final Gram Positive Cocci Most Recent Lab Values WBC 4.9 10^3/ul (4.5-11.0) 09/11/17 06:30 RBC 4.01 10^6/uL (3.5-6.1) 09/11/17 06:30 Hgb 12.9 g/dL (12.0-16.0) 09/11/17 06:30 Hct 40.0 % (36.0-48.0) 09/11/17 06:30 MCV 99.8 fl (80.0-105.0) 09/11/17 06:30 MCH 32.2 pg (25.0-35.0) 09/11/17 06:30 MCHC 32.3 g/dl (31.0-37.0) 09/11/17 06:30 RDW 12.3 % (11.5-14.5) 09/11/17 06:30 Plt Count 205 10^3/uL (120.0-450.0) 09/11/17 06:30 MPV 10.5 fl (7.0-11.0) 09/11/17 06:30 Gran % 53.1 % (50.0-68.0) 09/11/17 06:30 Lymph % (Auto) 35.2 % (22.0-35.0) H 09/11/17 06:30 Nicholas % (Auto) 9.1 % (1.0-6.0) H 09/11/17 06:30 Eos % (Auto) 2.4 % (1.5-5.0) 09/11/17 06:30 Baso % (Auto) 0.2 % (0.0-3.0) 09/11/17 06:30 Gran # 2.61 (1.4-6.5) 09/11/17 06:30 Lymph # 1.7 (1.2-3.4) 09/11/17 06:30 Nicholas # 0.5 (0.1-0.6) 09/11/17 06:30 Eos # 0.1 (0.0-0.7) 09/11/17 06:30 Baso # 0.01 K/mm3 (0.0-2.0) 09/11/17 06:30 PT 10.5 SECONDS (9.4-12.5) 09/09/17 11:30 INR 0.96 (0.93-1.08) 09/09/17 11:30 APTT 27.2 Seconds (25.1-36.5) 09/09/17 11:30 pO2 159 mm/Hg (30-55) H 09/09/17 17:20 VBG pH 7.41 (7.32-7.43) 09/09/17 17:20 VBG pCO2 44.0 (40-60) 09/09/17 17:20 VBG HCO3 27.9 mmol/l (21-28) 09/09/17 17:20 VBG Total CO2 29.3 mmol.L (22-28) H 09/09/17 17:20 VBG O2 Sat (Calc) 99.4 % (40-65) H 09/09/17 17:20 VBG Base Excess 2.7 mmol/L (0.0-2.0) H 09/09/17 17:20 VBG Potassium 3.5 mmol/L (3.6-5.2) L 09/09/17 17:20 Sodium 137.0 mmol/L (132-148) 09/09/17 17:20 Chloride 104.0 mmol/L (98-107) 09/09/17 17:20 Glucose 100 mg/dl (65-105) 09/09/17 17:20 Lactate 1.2 mmol/L (0.7-2.1) 09/09/17 17:20 FiO2 21.0 % 09/09/17 17:20 Sodium 142 mmol/L (132-148) 09/11/17 06:30 Potassium 3.9 mmol/L (3.6-5.0) 09/11/17 06:30 Chloride 105 mmol/L (98-107) 09/11/17 06:30 Carbon Dioxide 29 mmol/L (21-33) 09/11/17 06:30 Anion Gap 11 (10-20) 09/11/17 06:30 BUN 12 mg/dL (7-21) 09/11/17 06:30 Creatinine 0.8 mg/dl (0.7-1.2) 09/11/17 06:30 Est GFR ( Amer) > 60 09/11/17 06:30 Est GFR (Non-Af Amer) > 60 09/11/17 06:30 POC Glucose (mg/dL) 134 mg/dL (65-110) H 09/09/17 11:03 Random Glucose 104 mg/dL (70-110) 09/11/17 06:30 Hemoglobin A1c 5.8 % (4.2-6.5) 09/10/17 04:35 Calcium 9.6 mg/dL (8.4-10.5) 09/11/17 06:30 Phosphorus 4.1 mg/dL (2.5-4.5) 09/10/17 03:55 Magnesium 2.1 mg/dL (1.7-2.2) 09/10/17 03:55 Total Bilirubin 0.7 mg/dL (0.2-1.3) 09/11/17 06:30 AST 30 U/L (14-36) 09/11/17 06:30 ALT 33 U/L (7-56) 09/11/17 06:30 Alkaline Phosphatase 50 U/L (38-126) 09/11/17 06:30 Lactate Dehydrogenase 349 U/L (333-699) 09/10/17 03:55 Total Creatine Kinase 39 U/L (35-230) 09/10/17 03:55 Troponin I < 0.01 ng/mL 09/10/17 03:55 NT-Pro-B Natriuret Pep 77.4 pg/mL (0-450) 09/09/17 11:30 Total Protein 7.1 g/dL (5.8-8.3) 09/11/17 06:30 Albumin 3.8 g/dL (3.0-4.8) 09/11/17 06:30 Globulin 3.3 gm/dL 09/11/17 06:30 Albumin/Globulin Ratio 1.1 (1.1-1.8) 09/11/17 06:30 TSH 3rd Generation 4.59 mIU/mL (0.46-4.68) 09/10/17 04:35 Venous Blood Potassium 3.5 mmol/L (3.6-5.2) L 09/09/17 17:20 Urine Color Yellow (YELLOW) 09/09/17 14:17 Urine Appearance Sl cloudy (CLEAR) 09/09/17 14:17 Urine pH 6.0 (4.7-8.0) 09/09/17 14:17 Ur Specific Sullivan 1.025 (1.005-1.035) 09/09/17 14:17 Urine Protein Trace mg/dL (<30 mg/dL) H 09/09/17 14:17 Urine Glucose (UA) Negative mg/dL (NEGATIVE) 09/09/17 14:17 Urine Ketones Negative mg/dL (NEGATIVE) 09/09/17 14:17 Urine Blood Negative (NEGATIVE) 09/09/17 14:17 Urine Nitrate Negative (NEGATIVE) 09/09/17 14:17 Urine Bilirubin Negative (NEGATIVE) 09/09/17 14:17 Urine Urobilinogen 0.2 E.U./dL (<1 E.U./dL) 09/09/17 14:17 Ur Leukocyte Esterase Trace Fahad/uL (NEGATIVE) H 09/09/17 14:17 Urine RBC 0 - 2 /hpf (0-2) 09/09/17 14:17 Urine WBC 1 - 3 /hpf (0-6) 09/09/17 14:17 Ur Epithelial Cells 6 - 8 /hpf (0-5) 09/09/17 14:17 Urine Bacteria Mod (NEG) 09/09/17 14:17 - Hospital Course Hospital Course: Pt is a 56 yo female with past medical history of hypertension, COPD, hyperlipidemia, depression, GERD, peripheral edema and meningioma presented to [facility] due to occipital headache and dizziness for 6 days prior to admission. Pt states that headache is throbbing and located mostly on the right side of her occipital region. Pt states that she feels as if she is about to pass out, but has not passed out, fallen, or endured any trauma. Of note, patient had stress test done about [address] Walden that was normal. 2D echo was also performed that showed normal left atrial pressure and normal LVEF. Pt was admitted for evaluation of vertigo, dizziness, and headache. CT head was obtained and showed moderately dilated lateral ventricles left > right, mildly dilated 3rd and 4th ventricle. Follow up MRI Brain w/wo contrast showed moderately dilated lateral ventricles, may represent non-communicating hydrocephalus. Neurology was consulted, recommendations were appreciated. Neurosurgery was contacted and recommended that patient follow up as an outpatient. Today, patient was seen and examined at bedside. Orthostatics were negative before and after 500 cc NS bolus, which makes orthostatic hypotension less likely. However, we instructed patient to hold Lasix for one week to see if her symptoms improved. Pt was advised that Norvasc could cause peripheral edema, which is what Lasix is treating. Pt was advised to follow up with her PMD , professor of environmental studies, and neurosurgeon upon discharge. Patient was also given an Rx for meclizine for dizziness. Discharge Diagnosis - Vertigo - Headache - H/o HTN, HLD, peripheral edema, GERD, depression Discharge Medications - Meclizine 12.5 mg PO BID prn - Home medications will be resumed per MAR with exception of Lasix which will be held for 1 week until follow up with professor of environmental studies Discharge Exam - Head Exam Head Exam: NORMAL INSPECTION - Eye Exam Eye Exam: Normal appearance - ENT Exam ENT Exam: Normal Exam - Neck Exam Neck exam: Full Rom - Respiratory Exam Respiratory Exam: Clear to PA & Lateral. absent: Accessory Muscle Use, Rales, Rhonchi, Wheezes, Respiratory Distress - Cardiovascular Exam Cardiovascular Exam: RRR, +S1, +S2. absent: Diastolic murmur, Gallop, Rubs, Systolic Murmur - GI/Abdominal Exam GI & Abdominal Exam: Soft. absent: Distended, Guarding, Rebound, Tenderness - Extremities Exam Extremities exam: normal inspection - Back Exam Back exam: NORMAL INSPECTION - Neurological Exam Neurological exam: Alert, Oriented x3 - Psychiatric Exam Psychiatric exam: Normal Affect, Normal Mood - Skin Skin Exam: Dry, Intact, Normal Color, Warm Discharge Plan - Discharge Medications Prescriptions: Meclizine [Meclizine*] 12.5 mg PO BID PRN #20 tab PRN Reason: Dizziness - Follow Up Plan Condition: FAIR Disposition: HOME/ ROUTINE Instructions: Vertigo (DC), Dizziness (GEN), Weakness (GEN) Additional Instructions: 1. Call Dr. Maks, neurosurgery, for outpatient follow up due to abnormal CT and MRI 2. Follow up with PMD within 1 week 3. Follow up with [employer] within 1 week 4. Hold LASIX for 1 week to see if symptoms resolve 5. May use Meclizine for dizziness as needed 6. Resume medications as prescribed 7. Return to ED if symptoms worsen Referrals: Jonnathan Cuevas MD [Primary Care Provider] - Bo Alba MD [Staff Provider] - Varun Rich MD [Staff Provider] -
== END 2017-09-11 12:57 | disposition home or self-care (01) ==
LOC: ED 10:13 → ERH 12:38 → INTOOBSV 12:38 → ERH 22:51 → 3RNO 23:45
PROVIDERS: ADMIT Internal Medicine; ATTEND Internal Medicine
DX: R42 Dizziness and giddiness (principal); R51 Headache; G91.9 Hydrocephalus, unspecified; E78.5 Hyperlipidemia, unspecified; I10 Essential (primary) hypertension; J44.9 Chronic obstructive pulmonary disease, unspecified; K21.9 Gastro-esophageal reflux disease without esophagitis; F32.9 Major depressive disorder, single episode, unspecified; Z86.011 Personal history of benign neoplasm of the brain; Z87.891 Personal history of nicotine dependence
CPT/HCPCS: 36415; 70450; 70553; 71010; 80053; 81001; 82550; 82803; 82948; 83036; 83615; 83735; 83880; 84100; 84443; 84484; 85025; 85610; 85730; 87086; 93005; 93880; 97116; 97162; 99285; A9579; G0378; G8978; G8979; G8980; J7040

== ENCOUNTER 2019-01-11 22:35 | Emergency (ER) | payer MEDICAID, OTHER | END 2019-01-12 01:45 | disposition home or self-care (01) | LOC: ED 01-12 01:45 ==